=== PATIENT | female | born 1970 | race Caucasian/White ===

== ENCOUNTER 2017-01-17 18:24 | Emergency (ER) | payer BC ==
[~2017-01-17] VITALS: Ht 180.3 cm; Wt 72.6 kg
[~2017-01-17 18:24] MED LIST: AUGMENTIN 875 M1 TAB PO; MOTRIN800 MG PO; PERCOCET 325 MG1 TA2 PO; TRAMADOL HCL50 MG PO; ZITHROMAX Z PA250 MG PO
[2017-01-17 18:37] VITALS: BP 129/85
== END 2017-01-17 21:29 | disposition home or self-care (01) ==
LOC: ED 18:24
DX: S81.812A Laceration without foreign body, left lower leg, initial encounter (principal); X58.XXXA Exposure to other specified factors, initial encounter; Y93.9 Activity, unspecified; Y92.9 Unspecified place or not applicable; Y99.9 Unspecified external cause status

== ENCOUNTER → 2017-02-26 | Outpatient (CLI) | payer BC | END | disposition home or self-care (01) | LOC: MAMMO 09:08 | DX: R92.8 Other abnormal and inconclusive findings on diagnostic imaging of breast (principal); Z87.898 Personal history of other specified conditions ==

== ENCOUNTER → 2017-06-15 | Outpatient (CLI) | payer OTHER, BC | END | disposition home or self-care (01) | LOC: ORTHO 02:10 | DX: M25.562 Pain in left knee (principal) ==

== ENCOUNTER → 2017-06-22 | Outpatient (CLI) | payer OTHER, BC | END | disposition home or self-care (01) | LOC: MRI 07:42 | DX: M17.12 Unilateral primary osteoarthritis, left knee (principal); M25.462 Effusion, left knee ==

== ENCOUNTER → 2018-02-19 | Outpatient (CLI) | payer OTHER, BC | END | disposition home or self-care (01) | LOC: ORTHO 00:28 | DX: S83.242D Other tear of medial meniscus, current injury, left knee, subsequent encounter (principal); X58.XXXD Exposure to other specified factors, subsequent encounter ==

== ENCOUNTER → 2018-04-13 | Outpatient (CLI) | payer OTHER, BC ==
[~2018-04-13] MED LIST changes: +Percocet 325 MG1 TAB PO; +ZOFRAN4 MG PO
[2018-04-13 08:50] LABS: BILIRUBIN NEGATIVE (NEGATIVE); BLOOD NEGATIVE (NEGATIVE); CLARITY CLEAR (CLEAR); COLOR YELLOW (YELLOW); GLUCOSE NEGATIVE (NEGATIVE); KETONE NEGATIVE (NEGATIVE); LEUKO ESTERASE NEGATIVE (NEGATIVE); NITRITE NEGATIVE (NEGATIVE); UROBILINOGEN 0.2 E.U./dl (0.2-1.0)
[2018-04-13 08:59] LABS: BACTERIA TRACE; RBC 0-2 rbc/hpf (0-2); WBC 0-2 wbc/hpf (0-5)
[2018-04-13 09:01] LABS: BASO % 0.6 % (0.0-1.0); EOS # 0.1 10*3/uL (0.0-0.4); EOS % 2.4 % (1.0-4.0); HEMATOCRIT 40.6 % (37.0-47.0); HEMOGLOBIN 13.1 g/dl (12.0-16.0); LYMPH # 1.6 10*3/uL (1.3-4.4); LYMPH % 28.5 % (27.0-41.0); MEAN CELL VOLUME 92.1 fl (81.0-99.0); MEAN CORPUSCULAR HGB 29.7 pg (27.0-31.0); MEAN CORPUSCULAR HGB CONC 32.3 g/dl (33.0-37.0); MEAN PLATELET VOLUME 10.6 fl (9.6-12.3); MONO # 0.3 10*3/uL (0.1-1.0); MONO % 6.3 % (3.0-9.0); NEUT # 3.4 10*3/uL (2.3-7.9); NEUT % 61.8 % (47.0-73.0); PLATELET COUNT AUTOMATED 156 10*3/uL (130-400); RED BLOOD COUNT 4.41 10*6/uL (4.10-5.10); RED CELL DISTRI WIDTH 13.1 % (0-14.5); WHITE BLOOD COUNT 5.4 10*3/uL (4.8-10.8)
[2018-04-13 09:23] LABS: ALBUMIN 3.8 gm/dl (3.1-4.5); BUN 14 mg/dl (7-24); CHLORIDE 103 mmol/L (98-107); POTASSIUM 3.8 mmol/L (3.5-5.1); SODIUM 141 mmol/L (136-145)
[2018-04-13 09:27] LABS: ALKALINE PHOSPHATASE 87 U/L (45-117); CREATININE 0.51 mg/dL (0.55-1.02); SGOT/AST 16 IU/L (3-35); SGPT/ALT 26 U/L (12-78); TOTAL PROTEIN 7.4 gm/dL (6.4-8.2)
== END | disposition home or self-care (01) ==
LOC: LAB 07:37
PROVIDERS: Orthopaedic Surgery
DX: S83.242A Other tear of medial meniscus, current injury, left knee, initial encounter (principal); X58.XXXA Exposure to other specified factors, initial encounter; Y93.89 Activity, other specified; Y92.89 Other specified places as the place of occurrence of the external cause; Y99.8 Other external cause status

== ENCOUNTER → 2018-04-14 | Outpatient (CLI) | payer OTHER, BC | LOC: RAD 03:18 → ORTHO 03:18 | DX: Z01.818 Encounter for other preprocedural examination (principal); S83.242D Other tear of medial meniscus, current injury, left knee, subsequent encounter; X58.XXXD Exposure to other specified factors, subsequent encounter ==

== ENCOUNTER → 2018-04-22 | Day surgery (SDC) | payer OTHER, BC ==
[~2018-04-22] VITALS: Ht 154.9 cm; Wt 86.2 kg
[2018-04-22] VITALS (9 sets, daily range): BP systolic 103–130; BP diastolic 64–72
== END | disposition home or self-care (01) ==
LOC: SDC 04-12 10:15
DX: S83.242A Other tear of medial meniscus, current injury, left knee, initial encounter (principal); S83.282A Other tear of lateral meniscus, current injury, left knee, initial encounter; M94.262 Chondromalacia, left knee; Z98.890 Other specified postprocedural states; Z87.891 Personal history of nicotine dependence; Z79.899 Other long term (current) drug therapy; Z98.51 Tubal ligation status; Z83.3 Family history of diabetes mellitus; X58.XXXA Exposure to other specified factors, initial encounter; Y93.89 Activity, other specified; Y92.89 Other specified places as the place of occurrence of the external cause; Y99.8 Other external cause status

== ENCOUNTER → 2019-12-05 | Outpatient (CLI) | payer BC ==
[~2019-12-05] MED LIST changes: +AUGMENTIN 875-875 MG PO
== END | disposition home or self-care (01) ==
LOC: RESCLI 15:25
DX: J01.90 Acute sinusitis, unspecified (principal); R05 Cough; R19.7 Diarrhea, unspecified; Z79.899 Other long term (current) drug therapy

== ENCOUNTER 2020-04-24 07:30 | Emergency (ER) | payer BC ==
[~2020-04-24] VITALS: Ht 180.3 cm
[2020-04-24 07:39] VITALS: BP 130/74
[2020-04-24 07:59] LABS: BASO % 0.8 % (0.0-1.0); EOS # 0.1 10*3/uL (0.0-0.4); HEMATOCRIT 39.2 % (37.0-47.0); LYMPH # 1.6 10*3/uL (1.3-4.4); LYMPH % 34.4 % (27.0-41.0); MEAN CELL VOLUME 89.9 fl (81.0-99.0); MEAN CORPUSCULAR HGB 29.4 pg (27.0-31.0); MEAN CORPUSCULAR HGB CONC 32.7 g/dl (33.0-37.0); MEAN PLATELET VOLUME 10.6 fl (9.6-12.3); MONO # 0.3 10*3/uL (0.1-1.0); MONO % 7.2 % (3.0-9.0); NEUT # 2.6 10*3/uL (2.3-7.9); NEUT % 54.4 % (47.0-73.0); PLATELET COUNT AUTOMATED 183 10*3/uL (130-400); RED BLOOD COUNT 4.36 10*6/uL (4.10-5.10); RED CELL DISTRI WIDTH 13.1 % (0-14.5); WHITE BLOOD COUNT 4.7 10*3/uL (4.8-10.8)
[2020-04-24 08:10] LABS: ACT PARTIAL THROMBO TIME 28.3 SECONDS (20.0-32.1); INTERNATIONAL NORM RATIO 0.9 (2.0-3.5)
[2020-04-24 08:19] LABS: ALBUMIN 3.9 gm/dl (3.1-4.5); ALKALINE PHOSPHATASE 143 U/L (45-117); BUN 17 mg/dl (7-24); CHLORIDE 104 mmol/L (98-107); CREATININE 0.56 mg/dL (0.55-1.02); POTASSIUM 4.2 mmol/L (3.5-5.1); SGOT/AST 33 IU/L (3-35); SGPT/ALT 62 U/L (12-78); SODIUM 138 mmol/L (136-145); TOTAL PROTEIN 7.7 gm/dL (6.4-8.2)
[2020-04-24 08:20] LABS: TROPONIN I < 0.015 ng/ml (<0.045)
== END 2020-04-24 09:46 | disposition home or self-care (01) ==
LOC: ED 07:30
PROVIDERS: Emergency Medicine
DX: R07.89 Other chest pain (principal)

== ENCOUNTER → 2020-04-27 | Outpatient (CLI) | payer BC ==
[2020-04-27 07:59] LABS: BASO % 0.5 % (0.0-1.0); EOS # 0.1 10*3/uL (0.0-0.4); EOS % 2.4 % (1.0-4.0); HEMATOCRIT 40.2 % (37.0-47.0); LYMPH # 1.4 10*3/uL (1.3-4.4); LYMPH % 24.6 % (27.0-41.0); MEAN CELL VOLUME 90.3 fl (81.0-99.0); MEAN CORPUSCULAR HGB 29.2 pg (27.0-31.0); MEAN CORPUSCULAR HGB CONC 32.3 g/dl (33.0-37.0); MEAN PLATELET VOLUME 11.1 fl (9.6-12.3); MONO # 0.4 10*3/uL (0.1-1.0); MONO % 6.3 % (3.0-9.0); NEUT # 3.9 10*3/uL (2.3-7.9); PLATELET COUNT AUTOMATED 199 10*3/uL (130-400); RED BLOOD COUNT 4.45 10*6/uL (4.10-5.10); RED CELL DISTRI WIDTH 13.1 % (0-14.5); WHITE BLOOD COUNT 5.9 10*3/uL (4.8-10.8)
[2020-04-27 08:21] LABS: ALBUMIN 3.9 gm/dl (3.1-4.5); BUN 20 mg/dl (7-24); CHLORIDE 110 mmol/L (98-107); CHOLESTEROL 193 mg/dL (<200); CREATININE 0.59 mg/dL (0.55-1.02); POTASSIUM 3.9 mmol/L (3.5-5.1); SGOT/AST 22 IU/L (3-35); SGPT/ALT 49 U/L (12-78); SODIUM 142 mmol/L (136-145); TOTAL PROTEIN 7.6 gm/dL (6.4-8.2); TRIGLYCERIDES 48 mg/dl (<150); VLDL CHOLESTEROL 10 mg/dL (6-40)
[2020-04-27 08:27] LABS: ALKALINE PHOSPHATASE 131 U/L (45-117); FREE T4 1.11 ng/dl (0.76-1.46); HDL CHOLESTEROL 63 mg/dl (40-60); LDL CHOLESTEROL 120 mg/dL (9-159)
[2020-04-27 09:36] LABS: VITAMIN D, 25-HYDROXY 31.8 ng/mL (30-100)
== END | disposition home or self-care (01) ==
LOC: LAB 06:50
PROVIDERS: Internal Medicine
DX: R70.0 Elevated erythrocyte sedimentation rate (principal); R79.82 Elevated C-reactive protein (CRP); R74.8 Abnormal levels of other serum enzymes; M06.9 Rheumatoid arthritis, unspecified; R53.81 Other malaise; E55.9 Vitamin D deficiency, unspecified

== ENCOUNTER 2021-01-12 23:00 | Emergency (ER) | payer OTHER ==
[~2021-01-12] VITALS: Ht 172.7 cm; Wt 81.6 kg
[2021-01-12 23:09] VITALS: BP 139/70
[2021-01-12] MEDS ORDERED: NAPROSYN500 MG PO (23:33)
== END 2021-01-12 23:45 | disposition home or self-care (01) ==
LOC: ED 23:00
DX: S93.401A Sprain of unspecified ligament of right ankle, initial encounter (principal); Z79.899 Other long term (current) drug therapy; Z90.49 Acquired absence of other specified parts of digestive tract; Z98.51 Tubal ligation status; Z98.890 Other specified postprocedural states; X58.XXXA Exposure to other specified factors, initial encounter; Y93.89 Activity, other specified; Y92.89 Other specified places as the place of occurrence of the external cause; Y99.8 Other external cause status

== ENCOUNTER → 2021-02-25 | Outpatient (CLI) | payer OTHER ==
[~2021-02-25] MED LIST changes: +NAPROSYN500 MG PO
== END | disposition home or self-care (01) ==
LOC: CARD 10:00
PROVIDERS: ATTEND Internal Medicine
DX: I49.1 Atrial premature depolarization (principal); R00.0 Tachycardia, unspecified

== ENCOUNTER 2022-03-31 04:19 | Emergency (ER) | payer BC, OTHER ==
[2022-03-31 04:31] VITALS: BP 166/90
[2022-03-31 04:49] LABS: BASO # 0.1 10*3/uL (0.0-0.1); BASO % 0.5 % (0.0-1.0); EOS # 0.1 10*3/uL (0.0-0.4); HEMATOCRIT 41.5 % (37.0-47.0); LYMPH # 2.1 10*3/uL (1.3-4.4); LYMPH % 20.2 % (27.0-41.0); MEAN CELL VOLUME 88.5 fl (81.0-99.0); MEAN CORPUSCULAR HGB CONC 32.8 g/dl (33.0-37.0); MEAN PLATELET VOLUME 9.9 fl (9.6-12.3); MONO # 0.7 10*3/uL (0.1-1.0); MONO % 6.6 % (3.0-9.0); NEUT # 7.3 10*3/uL (2.3-7.9); NEUT % 70.2 % (47.0-73.0); PLATELET COUNT AUTOMATED 251 10*3/uL (130-400); RED BLOOD COUNT 4.69 10*6/uL (4.10-5.10); RED CELL DISTRI WIDTH 13.8 % (0-14.5); WHITE BLOOD COUNT 10.4 10*3/uL (4.8-10.8)
[2022-03-31] MEDS ORDERED: PREDNISONE20 M1 PO (04:59)
== END 2022-03-31 04:59 | disposition home or self-care (01) ==
LOC: ED 04:19
PROVIDERS: Internal Medicine
DX: M25.561 Pain in right knee (principal)

== ENCOUNTER → 2022-04-04 | Outpatient (CLI) | payer OTHER, BC ==
[~2022-04-04] MED LIST changes: +PREDNISONE20 M1 PO
== END | disposition home or self-care (01) ==
LOC: MRI 00:09
PROVIDERS: ATTEND Physician Assistant Surgical
DX: S83.241A Other tear of medial meniscus, current injury, right knee, initial encounter (principal); M17.11 Unilateral primary osteoarthritis, right knee; M25.461 Effusion, right knee; X58.XXXA Exposure to other specified factors, initial encounter; Y93.89 Activity, other specified; Y92.89 Other specified places as the place of occurrence of the external cause; Y99.8 Other external cause status

== ENCOUNTER → 2022-04-22 | Day surgery (SDC) | payer OTHER, BC ==
[2022-04-22] VITALS (7 sets, daily range): BP systolic 125–149; BP diastolic 71–88
[~2022-04-22] MED LIST changes: +HYDROCODONE-AC1 EAC1 PO; +VALTREX500 MG PO
== END | disposition home or self-care (01) ==
LOC: SDC 04-18 13:15
PROVIDERS: ATTEND Orthopaedic Surgery
DX: S83.241A Other tear of medial meniscus, current injury, right knee, initial encounter (principal); M17.11 Unilateral primary osteoarthritis, right knee; X58.XXXA Exposure to other specified factors, initial encounter; Y93.89 Activity, other specified; Y92.89 Other specified places as the place of occurrence of the external cause; Y99.8 Other external cause status

== ENCOUNTER → 2022-05-22 | Outpatient (CLI) | payer OTHER, BC | END | disposition home or self-care (01) | LOC: US 11:02 | PROVIDERS: ATTEND Orthopaedic Surgery | DX: M79.661 Pain in right lower leg (principal); I87.1 Compression of vein ==

== ENCOUNTER → 2022-05-29 | Outpatient (CLI) | payer OTHER, BC | LOC: MAMMO 07:42 | PROVIDERS: ATTEND Internal Medicine | DX: R92.8 Other abnormal and inconclusive findings on diagnostic imaging of breast (principal); R92.2 Inconclusive mammogram ==

== ENCOUNTER → 2023-12-09 | Outpatient (CLI) | payer OTHER, BC | END | disposition home or self-care (01) | LOC: ORTHO 01:01 | PROVIDERS: ATTEND Orthopaedic Surgery | DX: M17.11 Unilateral primary osteoarthritis, right knee (principal); M25.521 Pain in right elbow ==

== ENCOUNTER → 2024-03-07 | Outpatient (CLI) | payer OTHER, BC | END | disposition home or self-care (01) | LOC: MAMMO 07:42 | PROVIDERS: ATTEND Nurse Practitioner Women's Health | DX: Z12.31 Encounter for screening mammogram for malignant neoplasm of breast (principal); M17.11 Unilateral primary osteoarthritis, right knee; M16.11 Unilateral primary osteoarthritis, right hip; M25.751 Osteophyte, right hip; M25.461 Effusion, right knee; M19.071 Primary osteoarthritis, right ankle and foot ==

== ENCOUNTER 2024-05-03 00:05 | Inpatient (IN) | payer OTHER, BC ==
[2024-04-29 12:44] VITALS: BP 117/60
[2024-04-29 13:25] LABS: BILIRUBIN Negative (Negative); BLOOD Negative (Negative); CLARITY Clear (Clear); COLOR Yellow (Yellow); GLUCOSE Negative (Negative); KETONE Negative (Negative); LEUKO ESTERASE Negative (Negative); NITRITE Negative (Negative); SPECIFIC GRAVITY 1.025 (1.001-1.030)
[2024-04-29 13:33] LABS: BACTERIA 2+
[2024-04-29 13:36] LABS: ACT PARTIAL THROMBO TIME 27.6 SECONDS (20.0-32.1)
[2024-04-29 13:49] LABS: ALKALINE PHOSPHATASE 200 U/L (46-116); BUN 15 mg/dl (9-23); CHLORIDE 108 mmol/L (98-107); POTASSIUM 3.9 mmol/L (3.4-5.1); SGPT/ALT 50 U/L (5-49); TOTAL PROTEIN 7.7 gm/dL (6.0-8.0)
[2024-05-03] VITALS (10 sets, daily range): BP systolic 108–153; BP diastolic 53–76
[~2024-05-03] VITALS: Ht 177.8 cm; Wt 104.3 kg
[~2024-05-03 00:05] MED LIST changes: +CELEBREX100 MG PO; +CELECOXIB200 M1 PO; +DEPAKOTE ER250 MG PO; +NEURONTIN100 MG PO; +ZOLOFT50 MG PO
[2024-05-03] MEDS ORDERED: ceFAZolin sodium/sodium chlor 0 ML IV ONE (07:10)
[2024-05-03] MEDS ORDERED: TRANEXAMIC ACID IN NACL,ISO-OS 100 ML IV ONE (07:10)
[2024-05-03] MEDS ORDERED: Ropivacaine Hydrochloride 5 MG/ML 20 ML AMP IJ ONE (07:12)
[2024-05-03] MEDS ORDERED: Midazolam Hydrochloride 2 MG/2 ML VIAL ONE ×2 (07:13→07:25)
[2024-05-03] MEDS ORDERED: Lactated Ringer's Solution 1,000 ML IV ONE (07:14)
[2024-05-03] MEDS ORDERED: Vancomycin Hydrochloride 250 ML IV ONE (07:34)
[2024-05-03] MEDS ORDERED: Bupivacaine Hydrochloride/Ep2 30 ML VIAL ONE (07:36)
[2024-05-03] MEDS ORDERED: Ondansetron Hydrochloride 4 MG/2 ML VIAL IV PRN (07:40)
[2024-05-03] MEDS ORDERED: MORPHINE Sulfate 4 MG IV SCH (07:40)
[2024-05-03] MEDS ORDERED: Acetaminophen/Oxycodone 5 MG/325 MG TABLET PO PRN ×2 (07:40→18:40)
[2024-05-03] MEDS ORDERED: ACETAMINOPHEN 500 MG TAB PO PRN (07:45)
[2024-05-03] MEDS ORDERED: SODIUM CHLORIDE 0.9% 1,000 ML IV ONE (07:49)
[2024-05-03] MEDS ORDERED: SODIUM CHLORIDE 0.9% 100 ML IV ONE (07:49)
[2024-05-03] MEDS ORDERED: MORPHINE Sulfate 2 MG/ML SYR IV SCH (07:50)
[2024-05-03] MEDS ORDERED: Vancomycin Hydrochloride 250 ML IV SCH (07:50)
[2024-05-03] MEDS ORDERED: TRANEXAMIC ACID IN NACL,ISO-OS 100 ML IV SCH (07:50)
[2024-05-03] MEDS ORDERED: ASPIRIN ENTERIC COATED 81 MG TAB PO SCH (10:00)
[2024-05-03] MEDS ORDERED: DOCUSATE SODIUM 100 MG CAP PO SCH (10:00)
[2024-05-03] MEDS ORDERED: Cholecalciferol 2,000 UNIT TABLET (50 MCG) PO SCH (10:00)
[2024-05-03 13:40] LABS: BUN 11 mg/dl (9-23); CHLORIDE 109 mmol/L (98-107); POTASSIUM 3.8 mmol/L (3.4-5.1)
[2024-05-03] MEDS ORDERED: MORPHINE Sulfate 2 MG/ML SYR IV PRN (14:15)
[2024-05-03] MEDS ORDERED: Acetaminophen/Oxycodone Hydr 7.5 MG/325 MG TABLET PO PRN (16:15)
[2024-05-03] MEDS ORDERED: fentaNYL CITRATE 100 MCG/2 ML VIAL IV ONE (17:19)
[2024-05-03] MEDS ORDERED: Ketamine Hydrochloride 500 MG/10 ML VIAL IV ONE (17:19)
[2024-05-03] MEDS ORDERED: ePHEDrine Sulfate 25 MG/5 ML SYRINGE IV ONE (17:19)
[2024-05-03] MEDS ORDERED: PROPOFOL 200 MG/20 ML VIAL IV ONE (17:19)
[2024-05-03] MEDS ORDERED: Ondansetron Hydrochloride 4 MG/2 ML VIAL IV ONE (17:19)
[2024-05-03] MEDS ORDERED: OXYCODONE HCL (IR) 5 MG TAB PO PRN (18:40)
[2024-05-03] MEDS ORDERED: MORPHINE Sulfate 2 MG/ML SYR IV ONE (18:45)
[2024-05-03] MEDS ORDERED: BUSPIRONE HCL10 MG PO (19:21)
[2024-05-03] MEDS ORDERED: busPIRone Hydrochloride 10 MG TAB PO PRN (19:50)
[2024-05-03] MEDS ORDERED: Ketorolac Tromethamine 15 MG/ML VIAL IV SCH (20:00)
[2024-05-03] MEDS ORDERED: Vancomycin Hydrochloride 1,000 MG in SODIUM CHLORIDE 0.9% 250 ML IV SCH (20:00)
[2024-05-03] MEDS ORDERED: HYDROmorphONE Hydrochloride 1 MG/ML SYR IV PRN (22:35)
[2024-05-04] VITALS: BP 115/56
[2024-05-04 06:35] LABS: BASO % 0.3 % (0.0-1.0); EOS % 0.4 % (1.0-4.0); HEMATOCRIT 33.5 % (37.0-47.0); LYMPH # 1.1 10*3/uL (1.3-4.4); LYMPH % 12.1 % (27.0-41.0); MEAN CELL VOLUME 88.6 fl (81.0-99.0); MEAN CORPUSCULAR HGB 29.1 pg (27.0-31.0); MEAN CORPUSCULAR HGB CONC 32.8 g/dl (33.0-37.0); MONO # 0.6 10*3/uL (0.1-1.0); MONO % 6.2 % (3.0-9.0); NEUT # 7.5 10*3/uL (2.3-7.9); NEUT % 80.7 % (47.0-73.0); PLATELET COUNT AUTOMATED 186 10*3/uL (130-400); RED BLOOD COUNT 3.78 10*6/uL (4.10-5.10); RED CELL DISTRI WIDTH 13.7 % (0-14.5); WHITE BLOOD COUNT 9.3 10*3/uL (4.8-10.8)
[2024-05-04 08:00] VITALS: BP 121/61
[2024-05-04] MEDS ORDERED: ASPIRIN ENTERIC COATED 81 MG TAB PO SCH (10:00)
[2024-05-04] MEDS ORDERED: Sertraline Hydrochloride 50 MG TAB PO ONE (10:55)
[2024-05-04 12:00] VITALS: BP 113/72
[2024-05-04] MEDS ORDERED: GABAPENTIN 100 MG CAP PO SCH (14:00)
[2024-05-04 16:00] VITALS: BP 114/67
[2024-05-04 20:00] VITALS: BP 123/74
[2024-05-04] MEDS ORDERED: ZOLPIDEM TARTRATE 5 MG TAB PO ONE (21:10)
[2024-05-04] MEDS ORDERED: DIVALPROEX ER 250 MG TAB PO SCH (22:00)
[2024-05-05 06:48] LABS: BASO % 0.3 % (0.0-1.0); EOS # 0.3 10*3/uL (0.0-0.4); EOS % 2.5 % (1.0-4.0); HEMATOCRIT 34.4 % (37.0-47.0); LYMPH # 1.6 10*3/uL (1.3-4.4); LYMPH % 15.8 % (27.0-41.0); MEAN CELL VOLUME 87.5 fl (81.0-99.0); MEAN CORPUSCULAR HGB 28.5 pg (27.0-31.0); MEAN CORPUSCULAR HGB CONC 32.6 g/dl (33.0-37.0); MEAN PLATELET VOLUME 10.5 fl (9.6-12.3); MONO # 0.6 10*3/uL (0.1-1.0); MONO % 6.3 % (3.0-9.0); NEUT # 7.6 10*3/uL (2.3-7.9); NEUT % 74.5 % (47.0-73.0); PLATELET COUNT AUTOMATED 216 10*3/uL (130-400); RED BLOOD COUNT 3.93 10*6/uL (4.10-5.10); RED CELL DISTRI WIDTH 13.7 % (0-14.5); WHITE BLOOD COUNT 10.2 10*3/uL (4.8-10.8)
[2024-05-05 08:00] VITALS: BP 120/60
[2024-05-05] MEDS ORDERED: ASPIRIN ADULT L81 M2 PO (09:52)
[2024-05-05] MEDS ORDERED: OXYCODONE-ACET1 EAC3 PO (09:52)
[2024-05-05] MEDS ORDERED: DIVALPROEX ER 250 MG TAB PO SCH (10:00)
[2024-05-05] MEDS ORDERED: Sertraline Hydrochloride 50 MG TAB PO SCH (10:00)
[2024-05-05] MEDS ORDERED: OXYCODONE HCL5 MG PO (10:52)
== END 2024-05-05 14:48 | disposition home or self-care (01) | DRG 470 ==
LOC: SDC 00:05 → 4E 08:02 → SDC 13:15 → 4E 05-05 14:48
PROVIDERS: Orthopaedic Surgery; ADMIT Internal Medicine; ATTEND Internal Medicine
PROC: 0SRC0JA Replacement of Right Knee Joint with Synthetic Substitute, Uncemented, Open Approach (ICD-10-PCS; principal; 2024-05-03)
PROC: 3E0T3BZ Introduction of Anesthetic Agent into Peripheral Nerves and Plexi, Percutaneous Approach (ICD-10-PCS; 2024-05-03)
DX: M17.11 Unilateral primary osteoarthritis, right knee (principal); F33.0 Major depressive disorder, recurrent, mild; F41.1 Generalized anxiety disorder; Z96.651 Presence of right artificial knee joint; Z98.51 Tubal ligation status; Z90.49 Acquired absence of other specified parts of digestive tract; Z47.1 Aftercare following joint replacement surgery

== ENCOUNTER 2024-05-11 06:03 | Emergency (ER) | payer OTHER, BC ==
[~2024-05-11] VITALS: Ht 177.8 cm; Wt 74.4 kg
[~2024-05-11 06:03] MED LIST changes: +ASPIRIN ADULT L81 M2 PO; +BUSPIRONE HCL10 MG PO; +OXYCODONE HCL5 MG PO; +OXYCODONE-ACET1 EAC3 PO
[2024-05-11] MEDS ORDERED: FAMOTIDINE 50 ML IV ONE ×2 (06:15)
[2024-05-11] MEDS ORDERED: Dexamethasone Sodium Phospha 20 MG/5 ML VIAL IV ONE (06:15)
[2024-05-11] MEDS ORDERED: diphenhydrAMINE hydrochloride 50 MG/ML VIAL IV ONE (06:15)
[2024-05-11] MEDS ORDERED: SODIUM CHLORIDE 0.9% 1,000 ML IV ONE (06:15)
[2024-05-11 06:30] LABS: BASO % 0.5 % (0.0-1.0); EOS # 0.4 10*3/uL (0.0-0.4); EOS % 4.1 % (1.0-4.0); HEMATOCRIT 36.5 % (37.0-47.0); LYMPH # 1.5 10*3/uL (1.3-4.4); LYMPH % 16.7 % (27.0-41.0); MEAN CELL VOLUME 90.6 fl (81.0-99.0); MEAN CORPUSCULAR HGB 28.5 pg (27.0-31.0); MEAN CORPUSCULAR HGB CONC 31.5 g/dl (33.0-37.0); MEAN PLATELET VOLUME 9.4 fl (9.6-12.3); MONO # 0.5 10*3/uL (0.1-1.0); MONO % 5.7 % (3.0-9.0); NEUT # 6.4 10*3/uL (2.3-7.9); NEUT % 72.4 % (47.0-73.0); PLATELET COUNT AUTOMATED 305 10*3/uL (130-400); RED BLOOD COUNT 4.03 10*6/uL (4.10-5.10); RED CELL DISTRI WIDTH 13.9 % (0-14.5); WHITE BLOOD COUNT 8.8 10*3/uL (4.8-10.8)
[2024-05-11 06:54] LABS: BUN 14 mg/dl (9-23); CHLORIDE 103 mmol/L (98-107); POTASSIUM 3.7 mmol/L (3.4-5.1)
[2024-05-11] MEDS ORDERED: PREDNISONE50 MG PO (08:17)
[2024-05-11] MEDS ORDERED: BENADRYL ALLERG50 MG PO (08:17)
[2024-05-11] MEDS ORDERED: PEPCID20 MG PO (08:17)
[2024-05-11 08:20] VITALS: BP 121/68
== END 2024-05-11 08:28 | disposition home or self-care (01) ==
LOC: ED 06:03
PROVIDERS: Emergency Medicine
DX: T78.49XA Other allergy, initial encounter (principal); L50.9 Urticaria, unspecified; R22.0 Localized swelling, mass and lump, head; Z79.82 Long term (current) use of aspirin; Z79.899 Other long term (current) drug therapy; Z98.890 Other specified postprocedural states; Z90.49 Acquired absence of other specified parts of digestive tract; Z98.51 Tubal ligation status; X58.XXXA Exposure to other specified factors, initial encounter

== ENCOUNTER → 2024-05-18 | Outpatient (CLI) | payer OTHER, BC ==
[~2024-05-18] MED LIST changes: +BENADRYL ALLERG50 MG PO; +PEPCID20 MG PO; +PREDNISONE50 MG PO
== END | disposition home or self-care (01) ==
LOC: ORTHO 01:57
PROVIDERS: ATTEND Orthopaedic Surgery
DX: Z47.1 Aftercare following joint replacement surgery (principal); Z96.651 Presence of right artificial knee joint

== ENCOUNTER → 2024-06-15 | Outpatient (CLI) | payer OTHER, BC | END | disposition home or self-care (01) | LOC: ORTHO 00:51 | PROVIDERS: ATTEND Orthopaedic Surgery | DX: R60.0 Localized edema (principal); Z47.1 Aftercare following joint replacement surgery ==

== ENCOUNTER → 2024-07-15 | Outpatient (CLI) | payer OTHER, BC ==
[2024-07-15 09:05] LABS: BASO % 0.7 % (0.0-1.0); EOS # 0.1 10*3/uL (0.0-0.4); EOS % 2.2 % (1.0-4.0); HEMATOCRIT 42.9 % (37.0-47.0); LYMPH # 1.4 10*3/uL (1.3-4.4); MEAN CELL VOLUME 87.4 fl (81.0-99.0); MEAN CORPUSCULAR HGB 28.1 pg (27.0-31.0); MEAN CORPUSCULAR HGB CONC 32.2 g/dl (33.0-37.0); MONO # 0.3 10*3/uL (0.1-1.0); MONO % 5.3 % (3.0-9.0); NEUT # 4.1 10*3/uL (2.3-7.9); NEUT % 67.5 % (47.0-73.0); PLATELET COUNT AUTOMATED 234 10*3/uL (130-400); RED BLOOD COUNT 4.91 10*6/uL (4.10-5.10); RED CELL DISTRI WIDTH 13.2 % (0-14.5)
[2024-07-15 10:08] LABS: ALKALINE PHOSPHATASE 180 U/L (46-116); BUN 10 mg/dl (9-23); CHLORIDE 104 mmol/L (98-107); CHOLESTEROL 210 mg/dL (<200); FREE T4 0.99 ng/dl (0.89-1.76); LDL CHOLESTEROL 136 mg/dL (9-159); POTASSIUM 3.9 mmol/L (3.4-5.1); SGPT/ALT 23 U/L (5-49); TOTAL PROTEIN 7.7 gm/dL (6.0-8.0); TRIGLYCERIDES 125 mg/dl (<150)
[2024-07-15 11:06] LABS: VITAMIN D, 25-HYDROXY 39.5 ng/mL (30-100)
== END | disposition home or self-care (01) ==
LOC: LAB 08:49
PROVIDERS: ATTEND Internal Medicine
DX: M17.11 Unilateral primary osteoarthritis, right knee (principal); R53.83 Other fatigue

== ENCOUNTER → 2024-08-01 | Outpatient (CLI) | payer BC | END | disposition home or self-care (01) | LOC: ORTHO 08:36 | PROVIDERS: ATTEND Orthopaedic Surgery | DX: Z47.1 Aftercare following joint replacement surgery (principal) ==

== ENCOUNTER → 2024-10-31 | Outpatient (CLI) | payer OTHER, BC | END | disposition home or self-care (01) | LOC: ORTHO 02:59 | PROVIDERS: ATTEND Orthopaedic Surgery | DX: Z96.651 Presence of right artificial knee joint (principal) ==

== ENCOUNTER → 2025-07-05 | Outpatient (CLI) | payer OTHER, BC | END | disposition home or self-care (01) | LOC: ORTHO | PROVIDERS: ATTEND Orthopaedic Surgery | DX: M25.561 Pain in right knee (principal); Z96.651 Presence of right artificial knee joint ==